=== PATIENT | male | born 1975 | race Caucasian/White ===

== ENCOUNTER 2017-12-09 05:45 | Day surgery (SDC) | payer BC ==
[2017-12-09] MEDS ORDERED: DIPRIVAN 200 MG/20 ML IV ONE (05:46)
[2017-12-09] MEDS ORDERED: Versed 2 MG/2 ML Injection IV ONE (05:46)
[2017-12-09] MEDS ORDERED: Lactated Ringers 1,000 ML IV SCH (07:00)
[2017-12-09 08:47] VITALS: BP 133/74; PULSE 75; O2SAT 94
--- NOTE | 2017-12-09 13:20 | OP ---
SURGERY DATE/TIME: 12/09/2017 0704 PREOPERATIVE DIAGNOSIS: Rectal bleeding. POSTOPERATIVE DIAGNOSIS: Sigmoid colitis. PROCEDURE: Colonoscopy. SURGEON: Jimy Mustafa M.D. ANESTHESIA: MAC by Nico Bhat CRNA. ESTIMATED BLOOD LOSS: Minimal. SPECIMENS: Three cold forceps biopsies from the distal sigmoid colon. DESCRIPTION OF PROCEDURE: After informed written consent was obtained, the patient was taken to the endoscopy suite. Intermittent blood pressure monitoring and continuous pulse oximetry were used throughout the entirety of the procedure. After adequate level of anesthesia was assessed, a digital rectal exam showed normal sphincter tone and no internal lesions. The scope was inserted in rectum and sequentially the entire colonic mucosa was traversed. There was mucosal irritation of the distal sigmoid colon scattered in a circumferential distribution but not contiguous. There was no obvious bleeding or other lesions present. The level of cecum was reached and verified with direct visualization of ileocecal valve. Upon withdrawal the mucosal structures all appeared normal until again I reached the distal sigmoid colon which again showed scattered colitis-type changes with mucosal inflammation but no active bleeding. Three cold forceps biopsies were taken from the distal sigmoid colon near the rectosigmoid junction and sent for pathology testing. Prior to withdrawal retroflexion performed showed no obvious internal lesions. The scope was removed and the patient was transferred to the recovery room in excellent condition.
== END 2017-12-09 08:40 | disposition home or self-care (01) ==
LOC: SDC 05:45
PROVIDERS: ATTEND Family Medicine
DX: K52.9 Noninfective gastroenteritis and colitis, unspecified (principal)
CPT/HCPCS: 88305; J2250; J2704